=== PATIENT | female | born 1965 | race Asian ===

== ENCOUNTER 2020-07-24 08:51 | Emergency (ER) | payer MEDICAID, SELFPAY ==
--- NOTE | ~2020-07-24 | XR_ITS ---
EXAMINATION: XR SOFT TISSUE NECK CLINICAL INDICATION: Swallowed a piece of plastic from and drank COMPARISON: None TECHNIQUE: 2 views of the soft tissue neck were obtained. FINDINGS: Soft tissue films of the neck demonstrate a normal larynx, pharynx and upper trachea. No soft tissue swelling or opaque foreign body is demonstrated. There is degenerative disc changes with spondylosis C4-C5 and mild ventral spondylosis at 6 C6-C7-C7 disc level. XR/XR soft tissue neck IMPRESSION: No radiopaque foreign body seen in the neck. Degenerative changes of spine as described above
[2020-07-24 09:07] VITALS: BP 150/100; PULSE 90; RESP 16; TEMP 36.8; O2SAT 100; BMI 27.3
[2020-07-24] MEDS: Lidocaine HCl Viscous 2 % 15 ML SOLUTION MUCOUS MEM (09:54)
--- NOTE | 2020-07-24 10:06 | ED.SKABFB ---
HPI - Skin/Abscess/Foreign Bdy General Chief complaint: General Medical Stated complaint: fb in throat Time Seen by Provider: 07/24/20 09:28 Source: patient Mode of arrival: ambulatory Limitations: no limitations History of Present Illness HPI narrative: 55-year-old female presenting to the ED with concerns of a foreign body from a plastic cup straw opening that occurred approximately a week ago reports that she feels like it is still stuck in her throat on the right side. Denies any other symptoms complaints or concerns at this time. Has been eating and drinking normally since then. complaint: foreign body Onset (ago): week(s) (One week) Tetanus up to date: unsure Location: neck (Throat) Severity: mild Quality: sharp Pain Consistency: intermittent Relieving factors: none Exacerbating factors: other (Swallowing) Associated symptoms: denies other symptoms Treatments prior to arrival: none Related Data Previous Rx's Medication Instructions Recorded Magic Mouthwash 10 ml PO BID PRN 7 Days #240 ml 07/24/20 Diphen/Lido/Antacid 1:1:1 Allergies Allergy/AdvReac Type Severity Reaction Status Date / Time No Known Allergies Allergy Verified 07/24/20 09:31 Review of Systems Review of Systems: Constitutional : No Fever, No Chills, Cardiovascular : No Chest Pain, No SOB Respiratory : No Dyspnea Gastrointestinal : No abdominal pain Musculoskeletal : No Joint Swelling Skin : positive foreign body sensation in throat, no skin laceration, No rash, No surrounding erythema Neuro : No Weakness, No Numbness/tingling Psych : No SI/HI/thoughts of self injury Yes all other systems are reviewed and are negative PMFSH Past Medical History Attestation statement: The following information was validated with the patient. Medical History No known health problems Social History Social History Alcohol intake: never Smoking Status: Never smoker Use of substances other than those prescribed or required for medical reasons: No Advance Directives: No Advance Directives Information Provided: No Physical Exam Vital Signs: Vital Signs: Last Vital Signs Temp 98.2 F 07/24/20 09:07 Pulse 90 07/24/20 09:07 Resp 16 07/24/20 09:07 BP 150/100 H 07/24/20 09:07 Pulse Ox 100 07/24/20 09:07 Body Mass Index 27.3 vital signs have been reviewed as normal and appeared to be correct. Blood pressure normal. Heart rate normal. Respiration rate normal. Temperature normal. Oxygen saturation normal. Appearance: Alert. Oriented X3. No acute distress. Head: Normal external exam. Normocephalic. Eyes: PERRLA. EOMI. Conjunctiva and sclera normal. Eyelids normal. ENT: Pharynx normal. No foreign bodies/abrasion/lacerations noted. No exudate is noted. Uvula midline. Moist mucous membranes. No trismus noted. No drooling noted. No muffled voice noted. Neck: Normal inspection. Neck supple. FROM. No adenopathy. No meningeal signs. CVS: Normal heart rate and rhythm. Heart sound normal. No murmurs noted. Pulses normal throughout. Respiratory: No respiratory distress. Painless inspiration. Breath sounds normal. No wheezes/rales/rhonchi noted. Chest nontender. No accessory muscle usage noted or decreased air movement noted. Back: Full range of motion noted. Skin: Skin warm and dry. Normal skin color. Normal skin turgor. No rashes/lesions/lacerations noted. Extremities: Extremities exhibit normal range of motion. Extremities nontender. Neuro: Oriented X 3. No motor deficit. No sensory deficit. Reflexes normal. Normal steady gait. Course Course Course Narrative: No foreign body/infection/abrasion/lacerations noted. Patient is swallowing normally no trismus/drooling. X-ray negative for any acute processes. Will DC home with instructions follow-up with primary care provider and symptomatic treatment instructions to follow up if any new or worsening symptoms. Patient understands agrees with this plan. MDM - Skin/Abscess/Foreign Bdy Medical Records Attestation: I reviewed the patient's medical records. Imaging Data Soft tissue neck x-ray: Attestation: I personally reviewed and interpreted this imaging study as follows: Radiologist's impression: FINDINGS: Soft tissue films of the neck demonstrate a normal larynx, pharynx and upper trachea. No soft tissue swelling or opaque foreign body is demonstrated. There is degenerative disc changes with spondylosis C4-C5 and mild ventral spondylosis at 6 C6-C7-C7 disc level. XR/XR soft tissue neck IMPRESSION: No radiopaque foreign body seen in the neck. Degenerative changes of spine as described above Discharge Plan Discharge Clinical Impression: Foreign body sensation in throat Patient Disposition: Home, Self-Care Instructions: Foreign Body in Pharynx (ED), Foreign Body Ingestion (ED) Prescriptions: New Magic Mouthwash Diphen/Lido/Antacid 1:1:1 240 mL suspension 10 ml PO BID PRN (Reason: Throat irritation) 7 Days Qty: 240 RF: 0 Referrals: Masood Paris [Physician] - 2 days Stand Alone Forms: Work/School Release Print Language: Barb[place]
== END 2020-07-24 10:22 | disposition home or self-care (01) ==
PROVIDERS: Emergency Provider Internal Medicine; PCP Internal Medicine
DX: R09.89 Other specified symptoms and signs involving the circulatory and respiratory systems (principal); Z79.899 Other long term (current) drug therapy
CPT/HCPCS: 70360; 99284